=== PATIENT | male | born 1985 | race Caucasian/White ===

== ENCOUNTER 2020-12-25 09:17 | Day surgery (SDC) | payer BC ==
[2020-12-25] MEDS ORDERED: Ringers Lactate 1,000 ML IV ONE ×2 (09:51→14:25)
[2020-12-25] MEDS ORDERED: CEFAZOLIN/SWI 2gm 2 GM/20 ML SYR ONE (10:25)
[2020-12-25] MEDS ORDERED: ACETAMINOPHEN 500 MG TAB ONE (10:53)
[2020-12-25] MEDS ORDERED: CELECOXIB 100 MG CAPSULE ONE ×2 (10:53→10:55)
[2020-12-25] MEDS ORDERED: SCOPOLAMINE HYDROBROMIDE PATCH TD ONE (10:53)
[2020-12-25] MEDS ORDERED: propofoL 200 MG/20 ML VIAL IV ONE (12:29)
[2020-12-25] MEDS ORDERED: dexAMETHasone 10 MG/ML VIAL ONE (12:29)
[2020-12-25] MEDS ORDERED: MIDAZOLAM HCL 2 MG/2 ML INJ ONE (12:29)
[2020-12-25] MEDS ORDERED: LIDOCAINE 2% MPF 5 ML VIAL ONE (12:29)
[2020-12-25] MEDS ORDERED: FENTANYL CITR 100 MCG/2 ML ONE (12:29)
[2020-12-25] MEDS ORDERED: ROCURONIUM 50 MG/5 ML VIAL IV ONE (12:57)
[2020-12-25] MEDS ORDERED: ONDANSETRON 4 MG/2 ML VIAL ONE (12:57)
[2020-12-25] MEDS ORDERED: BUPIVACAINE 0.25% PF 10 ML VIAL ONE (13:14)
--- NOTE | 2020-12-25 14:14 | P.OP ---
Preoperative diagnosis: Umbilical Hernia - incarcerated Postoperative diagnosis: Umbilical Hernia - incarcerated Primary procedure: Open Umbilical Hernia Repair with mesh Anesthesia: GETA + Local Estimated blood loss: < 5 cc Specimen: none Findings: small supra-umbilical hernia - incarcerated Complications: None Implants: 4.3 cm round bard ventralite mesh Transferred to: Recovery Room Condition: Good
[2020-12-25] MEDS ORDERED: KETOROLAC 30 MG/ML INJ ONE (14:25)
[2020-12-25] MEDS: HYDROMORPHONE HCL 1 MG/ML INJ ONE ×2 (14:34→14:39)
[2020-12-25 15:12] VITALS: TEMP 97.5
[2020-12-25] MEDS ORDERED: HYDROCODONE/APAP 10/325 TAB ONE (15:40)
--- NOTE | 2020-12-25 15:47 | OP ---
Date of Procedure: 12/25/2020 Surgeon: Brenden Mercado MD, Preoperative Diagnosis: Umbilical hernia-incarcerated. Postoperative Diagnosis: Umbilical hernia-incarcerated. Procedure: Open umbilical hernia repair with mesh. Anesthesia: General endotracheal plus local with 0.25% Marcaine without epinephrine. Estimated Blood Loss: Less than 5 mL. Specimen: None. Findings: Small supraumbilical hernia, incarcerated approximately 1.2 cm in size. Complications: None. Implants: 4.3 cm Bard Ventralight mesh with strap Disposition: The patient was transferred to recovery room in good condition. Procedure In Detail: After informed consent was obtained, the patient was brought to the operating r oom, prepped and draped in the usual sterile fashion after adequate anesthesia was achieved. I made a curvilinear incision around the supraumbilical position down through subcutaneous tissue with a 15 blade. I then dissected down using electrocautery down to the hernia defect, which was found to be a small 1.2 cm proximally hernia defect in the supraumbilical position. I grasped, elevated the fasci al plane, and opened this plane in the hernia sac. It was easily reducible after opening and removin g the incarcerated fat. The remainder was easily reducible at this point of preperitoneal fat. I parra ve performed finger sweep in the preperitoneal space to ensure a good clean landing spot for the mesh . At this point, no bleeding was appreciated. I then brought in a 4.3 cm Bard Ventralight mesh with strap and hydrated this appropriately. I then parachuted in the mesh using 0 PDS sutures in a circu mferential fashion and secured it in the preperitoneal position without evidence of complication. I then closed the fascia overlying the mesh with an additional 0 PDS suture in a running fashion with g ood apposition and approximation of the tissues. I then irrigated the area copiously and dried it an d closed the deep dermal plane using interrupted 3-0 Vicryl suture and closed the skin with a 4-0 Mon ocryl in a running fashion. Dermabond placed over top. The patient tolerated the procedure well wit hout evidence of complication and transferred to PACU in good condition. All counts were correct at the end of the case. JES/PAUL Voice ID: [id number] Report ID: [id number]
[2020-12-25 16:48] VITALS: BP 143/65; O2SAT 95
== END 2020-12-25 16:15 | disposition home or self-care (01) ==
LOC: OR 09:17
PROVIDERS: ATTEND Surgery
PROC: 0WUF0JZ Supplement Abdominal Wall with Synthetic Substitute, Open Approach (ICD-10-PCS; principal; 2020-12-25 12:00)
DX: K42.0 Umbilical hernia with obstruction, without gangrene (principal); E66.01 Morbid (severe) obesity due to excess calories; F32.9 Major depressive disorder, single episode, unspecified; I10 Essential (primary) hypertension; Z20.822 Contact with and (suspected) exposure to COVID-19; K21.9 Gastro-esophageal reflux disease without esophagitis; F41.9 Anxiety disorder, unspecified
CPT/HCPCS: 49587; U0003; J2704; J2250; J3010; J1100; J1170; J0690; J7120 ×2; J2405